=== PATIENT | male | born 1940 | race Hispanic/Latino ===

== ENCOUNTER 2019-02-10 23:09 | Emergency (ER) | payer OTHER ==
--- NOTE | 2019-02-11 00:14 | RAD ---
Portable frontal chest radiograph: 02/11/2019 COMPARISON: None HISTORY: Dyspnea FINDINGS: There is increased linear interstitial density with pulmonary hyperinflation. Emphysematous changes are noted bilaterally. Asymmetric increased density noted in the left lung base. No focal consolidation is noted. Evaluation is limited without comparison imaging. There is a questionable nodule within the right lung base measuring 2.2 cm. IMPRESSION: Increased linear interstitial density, hyperinflation, and evidence of diffuse emphysemat ous change. Asymmetric increased linear density noted in the left base, which may signify superimposed infectious pneumonitis. No focal consolidation. Follow-up imaging advised as clinically warranted. Possible pulmonary nodule within the right lung base. Follow-up PA and lateral imaging of the chest a dvised. Code lung nodule
[2019-02-11 00:17] LABS: #Basophils 0.2 thou/uL (0.0-0.2); #Lymphocytes 0.3 thou/uL (1.20-3.40); #Monocytes 0.4 thou/uL (0.11-0.59); #Neutrophils 9.8 thou/uL (1.40-6.50); %Basophils 1.8 % (0.0-1.0); %Eosinophils 0.1 % (0.0-10.0); %Lymphocytes 2.8 % (21.0-51.0); %Monocytes 3.8 % (0.0-10.0); %Neutrophils 91.5 % (42.0-75.0); Hemoglobin 12.3 g/dL (14.0-18.0); Mean Corpuscular HGB CONC 30.5 g/dL (32.0-36.0); Mean Corpuscular Hemoglobin 28.7 pg (27.0-31.0); Mean Platelet Volume 6.5 fL (7.4-10.4); Platelet Count 350 thou/uL (130-400); RBC Distribution Width 12.1 % (11.5-14.5); Red Blood Cell (RBC) Count 4.29 mill/uL (4.70-6.10); White Blood Cell (WBC) Count 10.7 thou/uL (4.8-10.8)
[2019-02-11] MEDS ORDERED: cefTRIAXone\\ROCEPHIN 1 GM VIAL ONE (00:18)
[2019-02-11] MEDS ORDERED: Azithromycin 250 MG TAB ONE (00:18)
[2019-02-11 00:43] LABS: ALT (SGPT) 16 U/L (8-55); AST (SGOT) 16 U/L (5-34); Albumin 3.7 g/dL (3.4-4.8); Alkaline Phosphatase 96 U/L (40-150); Anion Gap 20 mmol/L (10-20); BUN (Urea Nitrogen) 11 mg/dL (8.4-25.7); Bilirubin, Total 0.8 mg/dL (0.2-1.2); Calc. Creatinine Clearance 0 mL/min (70-130); Calcium 9.1 mg/dL (7.8-10.44); Carbon Dioxide 23 mmol/L (23-31); Chloride 91 mmol/L (98-107); Estimated GFR-MDRD Greater than 90; Glucose 102 mg/dL (83-110); Potassium 4.1 mmol/L (3.5-5.1); Protein, Total 6.7 g/dL (5.8-8.1); Sodium 130 mmol/L (136-145)
== END 2019-02-11 03:49 | disposition short-term general hospital (02) ==
LOC: ERS 23:09
DX: J44.0 Chronic obstructive pulmonary disease with (acute) lower respiratory infection (principal); J18.9 Pneumonia, unspecified organism; J44.1 Chronic obstructive pulmonary disease with (acute) exacerbation; Z87.891 Personal history of nicotine dependence
CPT/HCPCS: 36415; 71045; 80053; 83605; 83880; 84484; 85025; 87040; 93005; 94640; 96361; 96365; J0696; J7620